=== PATIENT | male | born 1995 | race Asian ===

== ENCOUNTER 2018-12-27 08:49 | Day surgery (SDC) | payer MEDICAID ==
[~2018-12-27 08:49] MED LIST: EPINEPHrine 1 MG/ML SDV ONE; Lactated Ringers 1,000 ML IV SCH; Oxymetazoline 0.05% Nasal Spray 15 ML Bottle ONE
--- NOTE | 2018-12-27 10:35 | PCM.PREANE ---
Preanesthetic Assessment - Anesthesia/Transfusion/Family Hx Anesthesia History: Prior Anesthesia Reaction Other Type of Anesthesia Reaction Comment: mother states he "woke up" during hernia repair Family History of Anesthesia Reaction: No Transfusion History: No Prior Transfusion(s) Intubation History: Unknown - Review of Systems General: No Symptoms Pulmonary: No Symptoms Cardiovascular: No Symptoms Gastrointestinal: No Symptoms Neurological: No Symptoms Other: Reports: None - Physical Assessment NPO Status Date: 12/26/18 NPO Status Time: 21:00 O2 Sat by Pulse Oximetry: 98 Respiratory Rate: 16 Vital Signs: Last Vital Signs Temp 37.3 C 12/27/18 09:30 Pulse 108 H 12/27/18 09:30 Resp 16 12/27/18 09:30 BP 128/78 12/27/18 09:30 Pulse Ox 98 12/27/18 09:30 Height: 1.75 m Weight: 74.389 kg ASA Class: 2 Mental Status: Alert & Oriented x3 Airway Class: Mallampati = 2 Dentition: Reports: Normal Dentition Thyro-Mental Finger Breadths: 3 Mouth Opening Finger Breadths: 3 ROM/Head Extension: Full Lungs: Clear to Auscultation, Normal Respiratory Effort Cardiovascular: Regular Rate, Regular Rhythm - Allergies Allergies/Adverse Reactions: Allergies Allergy/AdvReac Type Severity Reaction Status Date / Time scallops Allergy Rash Verified 12/25/18 11:14 - Blood Blood Available: No - Anesthesia Plan Pre-Op Medication Ordered: None - Acknowledgements Anesthesia Type Planned: General Anesthesia Pt an Appropriate Candidate for the Planned Anesthesia: Yes Alternatives and Risks of Anesthesia Discussed w Pt/Guardian: Yes Pt/Guardian Understands and Agrees with Anesthesia Plan: Yes PreAnesthesia Questionnaire HEENT History: Reports: Allergic Rhinitis, Other (See Below) Other HEENT History: hx of snoring, hypertrophic tonsils Cardiovascular History: Reports: Other (See Below) Other Cardiovascular History: 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 Has had follow up at [facility] and "has done fine". Gastrointestinal History: Reports: GERD Psychiatric History: Reports: Depression - Past Surgical History Head Surgeries/Procedures: Reports: None HEENT Surgical History: Reports: Oral Surgery Other HEENT Surgeries/Procedures: wisdom teeth Cardiovascular Surgical History: Reports: Other (See Below) Other Cardiovascular Surgeries/Procedures: aortic baloon dilatation for aortic stenosis GI Surgical History: Reports: Hernia, Inguinal Other GI Surgeries/Procedures: hernia repair at age 7 - HOME MEDS Home Medications: Home Meds Phenylephrine/Diphenhydramine [Eq Allergy & Sinus Relief Tab] 180 mg PO DAILY [History] - CURRENT (IN HOUSE) MEDS Current Meds: Current Medications Lactated Ringer's (Ringers, Lactated) 1,000 mls @ 125 mls/hr IV ASDIRECTED MOOK Last Admin: 12/27/18 09:29 Dose: 125 mls/hr Discontinued Medications Epinephrine HCl (Adrenalin) Confirm Administered Dose 1 mg .ROUTE .STK-MED ONE Stop: 12/27/18 07:37 Oxymetazoline HCl (Afrin Original 0.05% Nasal [place]) Confirm Administered Dose 15 ml .ROUTE .STK-MED ONE Stop: 12/27/18 07:37
[2018-12-27] MEDS ORDERED: Acetaminophen 1,000 MG in Premix Bag 1 BAG IV ONE (11:23)
--- NOTE | 2018-12-27 11:23 | PCM.HPR ---
H & P Addendum review - H & P Addendum Review Date of Original H & P: 12/07/18 Date Reviewed: 12/27/18 Time Reviewed: 10:25 Patient was Examined: No Changes
[2018-12-27] MEDS ORDERED: Ibuprofen 400 MG Tab PO ONE ×3 (11:24→14:15)
[2018-12-27] MEDS ORDERED: oxyCODONE 5 MG Tab PO PRN (11:24)
[2018-12-27] MEDS ORDERED: Midazolam 1 MG/ML 2 ML SDV ONE (11:27)
[2018-12-27] MEDS ORDERED: fentaNYL 100 MCG/2 ML SDV ONE ×2 (11:27→13:16)
[2018-12-27] MEDS ORDERED: Propofol 200 MG/20 ML SDV ONE (11:28)
[2018-12-27] MEDS ORDERED: Lidocaine 2% 5 ML SDV ONE (11:28)
--- NOTE | 2018-12-27 11:28 | PCM.OPNOTE ---
- General Post-Op/Procedure Note Date of Surgery/Procedure: 12/27/18 Condition: Good Free Text/Narrative:: Preoperative Diagnosis: Asymmetric tonsils Right >>Left Postoperative Diagnosis:Same Procedure: Bilateral tonsillectomy Surgeon: Lottie Deleon MD Anesthesia: GA Anesthesiologist: Neal MARK Date of procedure: 12/27/2018 Indications: To rule out malignancy; R tonsil > Left and increased in size over the observation period Findings: R tonsil Gr4; L tonsil Gr1; carito tonsils - tonsilloliths +++ Operation Details: An informed consent was obtained. A time out was performed and the patient was brought back to the operating room. General anesthesia was administered with an endotracheal tube. The table was turned 90 away from the anesthesia cart. Patient was appropriately positioned on the operating table. An appropriately sized Tj Nicholas mouth gag was positioned and suspended from a Navarro stand. The right tonsil was grasped with a Adonis Brown tonsil holding forceps, upper pole dissected with bipolar forceps. Remaining dissection was with combination of cold steel and bipolar. Tonsil fossa was packed with an oxymetazoline 0.05% soaked 2 x 2 gauze. The left tonsil was then similarly dissected and fossa packed with an oxymetazoline 0.05% soaked 2 x 2 gauze. Hemostasis was achieved bilaterally with the bipolar cautery at a setting of 10 W. Bilateral fossae were irrigated with warm saline and hemostasis was ensured. Bilateral lower pillars were ligated at the inferior pole with 2.0 vicryl. Postnasal space was suctioned clear. This concluded the procedure. Mouth gag was removed the oral cavity was inspected. Lips gums and teeth were intact. Lubricating jelly was applied to the lips. The patient was turned over to the anesthesiologist for recovery. Specimens: Tonsils were sent separately IV fluids: 1200 mls Blood loss : 30 mls Blood products: nil Disposition: PACU for recovery Follow up: As required.
[2018-12-27] MEDS ORDERED: Rocuronium 10 MG/ML 10 ML Syringe ONE (11:29)
[2018-12-27] MEDS ORDERED: Dexamethasone 4 MG/ML 5 ML MDV ONE (11:53)
[2018-12-27] MEDS ORDERED: Ondansetron 4 MG/2 ML SDV ONE (12:18)
[2018-12-27] MEDS ORDERED: Neostigmine Methylsulfate 1 MG/ML 5 ML Syringe ONE (12:20)
[2018-12-27] MEDS ORDERED: Glycopyrrolate 0.2 MG/ML SDV ONE ×2 (12:21→12:23)
[2018-12-27] MEDS ORDERED: Sugammadex Sodium 200 MG/2 ML VIAL ONE (12:46)
[2018-12-27] MEDS: fentaNYL 100 MCG/2 ML SDV IVPUSH PRN ×4 (13:18→13:44)
[2018-12-27] MEDS ORDERED: HYDROmorphone 2 MG/ML Syringe IVPUSH ONE (13:25)
--- NOTE | 2018-12-27 13:45 | PCM.POSTAN ---
POST ANESTHESIA ASSESSMENT - MENTAL STATUS Mental Status: Alert, Oriented - VITAL SIGNS Pulse Rate: 110 SaO2: 92 Resp Rate: 20 Blood Pressure: 128/81 - RESPIRATORY Respiratory Status: Respiratory Rate WNL, Airway Patent, O2 Saturation Stable - CARDIOVASCULAR CV Status: Pulse Rate WNL, Blood Pressure Stable - GASTROINTESTINAL GI Status: No Symptoms - POST OP HYDRATION Hydration Status: Adequate & Stable
--- NOTE | 2018-12-27 17:09 | PCM48HPAN ---
Post Anesthesia Note - EVALUATION WITHIN 48HRS OF ANESTHETIC Vital Signs in Normal Range: Yes Patient Participated in Evaluation: Yes Respiratory Function Stable: Yes Airway Patent: Yes Cardiovascular Function Stable: Yes Hydration Status Stable: Yes Pain Control Satisfactory: Yes Nausea and Vomiting Control Satisfactory: Yes Mental Status Recovered: Yes Pulse Rate: 110 Resp Rate: 16 Blood Pressure: 128/81 - COMMENTS/OBSERVATIONS Free Text/Narrative:: no anesthesia problems
== END 2018-12-27 16:17 | disposition home or self-care (01) ==
LOC: MW.SDS 08:49
PROVIDERS: ATTEND Otolaryngology
DX: J35.1 Hypertrophy of tonsils (principal); J35.8 Other chronic diseases of tonsils and adenoids; K21.9 Gastro-esophageal reflux disease without esophagitis; F32.9 Major depressive disorder, single episode, unspecified; J30.9 Allergic rhinitis, unspecified
CPT/HCPCS: 42826; A9270; J0131; J1100; J1170; J2001; J2250; J2405; J2704; J3010; J3490; J7120; 88304; J0171